=== PATIENT | female | born 1960 | race Caucasian/White ===

== ENCOUNTER 2016-05-05 15:07 | Emergency (ER) | payer OTHER ==
[2016-05-05] MEDS ORDERED: SUCRALFATE 1 GM/10 ML UDC PO STA (16:15)
[2016-05-05] MEDS ORDERED: MAG HYDROX/AL HYDROX/SIMETH 30 ML UDC PO STA (16:15)
[2016-05-05] MEDS ORDERED: LIDOCAINE VISCOUS 2% 15 ML UDC MM STA (16:15)
[2016-05-05] MEDS ORDERED: LIDOCAINE VISCOUS 2% 15 ML UDC MM ONE (16:37)
[2016-05-05] MEDS ORDERED: SUCRALFATE 1 GM/10 ML UDC ONE (16:37)
[2016-05-05] MEDS ORDERED: MAG HYDROX/AL HYDROX/SIMETH 30 ML UDC ONE (16:37)
== END 2016-05-05 17:05 | disposition home or self-care (01) ==
DX: R07.9 Chest pain, unspecified (principal); I10 Essential (primary) hypertension; E78.00 Pure hypercholesterolemia, unspecified; E11.9 Type 2 diabetes mellitus without complications; Z79.82 Long term (current) use of aspirin; Z79.84 Long term (current) use of oral hypoglycemic drugs
CPT/HCPCS: 36415; 71010; 80053; 83690; 84484; 85025; 85379; 93005; 93010; 99284; A9270

== ENCOUNTER 2016-09-03 13:16 | Outpatient (CLI) | payer OTHER ==
[2016-09-03 19:01] LABS: ALBUMIN/GLOBULIN RATIO 1.4 (1.0-2.2); BILIRUBIN,TOTAL 0.8 mg/dL (0.2-1.0); CREATININE 0.6 mg/dL (0.4-1.0); POTASSIUM 3.3 mmol/L (3.5-5.0); TOTAL PROTEIN 6.6 g/dL (6.7-8.2)
[2016-09-03 19:06] LABS: HEMOGLOBIN A1C 1.02 g/dL
== END 2016-09-03 13:17 | disposition home or self-care (01) ==
LOC: LAB.WCP 13:16
PROVIDERS: ATTEND Physician Assistant Medical
DX: E11.65 Type 2 diabetes mellitus with hyperglycemia (principal)
CPT/HCPCS: 36415; 80053; 83036

== ENCOUNTER 2016-11-01 11:48 | Outpatient (CLI) | payer OTHER ==
--- NOTE | 2016-11-02 18:05 | Mammography Report ---
DIGITAL BILATERAL SCREENING MAMMOGRAM: 11/01/2016 HISTORY: A 56-year-old asymptomatic female. TECHNIQUE: Routine CC and MLO projections as well as bilateral exaggerated CC views were obtained of the breasts. COMPARISON: 05/2011, 04/2008 FINDINGS: Scattered fibroglandular tissue is present within the breasts. There are no dominant masses, suspicious microcalcifications, or secondary signs of malignancy. In comparison to the previous studies, there are no significant changes. The pattern of glandular asymmetry is stable. Few benign calcifications again noted. Symmetric reactionary axillary lymph nodes are incidental. ASSESSMENT: NO MAMMOGRAPHIC EVIDENCE OF MALIGNANCY. NO SIGNIFICANT INTERVAL CHANGES. RECOMMENDATION: Screening mammography is recommended annually. BIRADS category 2 - benign. STANDARD QUALIFYING STATEMENTS 1. This examination was reviewed with the aid of Computed-Aided Detection (CAD) . 2. A negative or benign imaging report should not delay biopsy if clinically suspicious findings are present. Consider surgical consultation if warranted. More than 5% of cancers are not identified by imaging. 3. Dense breasts may obscure an underlying neoplasm. JOB #: [id number] EXT JOB #: [id number] LES
== END 2016-11-01 11:49 | disposition home or self-care (01) ==
LOC: DI.N 11:48
PROVIDERS: ATTEND Physician Assistant Medical
DX: Z12.31 Encounter for screening mammogram for malignant neoplasm of breast (principal)
CPT/HCPCS: 77067

== ENCOUNTER 2016-12-03 07:11 | Day surgery (SDC) | payer OTHER ==
[2016-12-03] MEDS ORDERED: LACTATED RINGERS 1,000 ML IV ONE (07:27)
[2016-12-03] MEDS ORDERED: MIDAZOLAM 2 MG/2 ML VIAL IVP ONE (09:10)
[2016-12-03] MEDS ORDERED: fentaNYL 100 MCG/2 ML VIAL IVP ONE (09:10)
[2016-12-03 09:14] VITALS: BP 102/44
== END 2016-12-03 07:12 | disposition home or self-care (01) ==
LOC: SDS 07:11
PROVIDERS: ATTEND Surgery
PROC: 0DBN8ZX Excision of Sigmoid Colon, Via Natural or Artificial Opening Endoscopic, Diagnostic (ICD-10-PCS; principal; 2016-12-03 08:15)
DX: Z12.11 Encounter for screening for malignant neoplasm of colon (principal); D12.5 Benign neoplasm of sigmoid colon; K57.30 Diverticulosis of large intestine without perforation or abscess without bleeding; E11.9 Type 2 diabetes mellitus without complications; I10 Essential (primary) hypertension; K21.9 Gastro-esophageal reflux disease without esophagitis; E78.5 Hyperlipidemia, unspecified; F32.9 Major depressive disorder, single episode, unspecified; Z79.82 Long term (current) use of aspirin; Z79.84 Long term (current) use of oral hypoglycemic drugs; Z87.891 Personal history of nicotine dependence
CPT/HCPCS: 45385; J7120; 88305

== ENCOUNTER 2017-02-04 11:33 | Outpatient (CLI) | payer OTHER ==
[2017-02-04 19:01] LABS: BASOPHILS % (AUTO) 0.5 %; EOSINOPHILS # (AUTO) 0.3 10^3/uL (0.0-0.7); EOSINOPHILS % (AUTO) 4.3 %; HCT - HEMATOCRIT 39.4 % (37.0-47.0); HGB - HEMOGLOBIN 12.9 g/dL (12.0-16.0); LYMPHOCYTES % (AUTO) 26.9 %; MEAN CORPUSCULAR HEMOGLOBIN 27.7 pg (27.0-31.0); MEAN CORPUSCULAR HGB CONC 32.6 g/dL (32.0-36.0); MEAN CORPUSCULAR VOLUME 84.9 fL (81.0-99.0); MEAN PLATELET VOLUME 8.6 fL (7.9-10.8); MONOCYTES # (AUTO) 0.5 10^3/uL (0.0-1.0); NEUTROPHILS # (AUTO) 4.7 10^3/uL (1.5-6.6); NEUTROPHILS % (AUTO) 62.3 %; RED BLOOD COUNT 4.65 10^6/uL (4.20-5.40); RED CELL DISTRIBUTION WIDTH 14.1 % (12.0-15.0); UNCORRECTED WHITE BLOOD COUNT 7.6 x10^3/uL; WHITE BLOOD COUNT 7.6 x10^3/uL (4.8-10.8)
[2017-02-04 19:14] LABS: ALBUMIN/GLOBULIN RATIO 1.5 (1.0-2.2); BILIRUBIN,TOTAL 0.7 mg/dL (0.2-1.0); BUN - BLOOD UREA NITROGEN 14 mg/dL (6-20); CALCIUM 8.9 mg/dL (8.5-10.3); CARBON DIOXIDE - CO2 23 mmol/L (21-32); CHLORIDE 102 mmol/L (101-111); CHOL/HDL RATIO 4.6 (<4.4); CHOLESTEROL 157 mg/dL; CREATININE 0.6 mg/dL (0.4-1.0); GFR - MDRD 104 (>89); GLUCOSE 163 mg/dL (70-100); HDL CHOLESTEROL 34 mg/dL; LDL/HDL RATIO 1.4 (<4.4); POTASSIUM 3.5 mmol/L (3.5-5.0); SODIUM 136 mmol/L (135-145); TOTAL PROTEIN 6.9 g/dL (6.7-8.2); TRIGLYCERIDES 384 mg/dL; VLDL CHOLESTEROL 77 mg/dL
[2017-02-04 19:35] LABS: HEMOGLOBIN A1C 1.05 g/dL
== END 2017-02-04 11:34 | disposition home or self-care (01) ==
LOC: LAB.WCP 11:33
PROVIDERS: ATTEND Physician Assistant Medical
DX: Z00.00 Encounter for general adult medical examination without abnormal findings (principal); E11.65 Type 2 diabetes mellitus with hyperglycemia
CPT/HCPCS: 36415; 80050; 80061; 82043; 83036

== ENCOUNTER → 2018-01-20 | Outpatient (CLI) | payer OTHER ==
[2018-01-20 13:07] LABS: BASOPHILS % (AUTO) 0.3 %; EOSINOPHILS # (AUTO) 0.3 10^3/uL (0.0-0.7); EOSINOPHILS % (AUTO) 3.6 %; HGB - HEMOGLOBIN 12.7 g/dL (12.0-16.0); LYMPHOCYTES # (AUTO) 1.7 10^3/uL (1.5-3.5); LYMPHOCYTES % (AUTO) 21.7 %; MEAN CORPUSCULAR HEMOGLOBIN 28.7 pg (27.0-31.0); MEAN CORPUSCULAR HGB CONC 33.8 g/dL (32.0-36.0); MEAN CORPUSCULAR VOLUME 84.9 fL (81.0-99.0); MONOCYTES # (AUTO) 0.4 10^3/uL (0.0-1.0); MONOCYTES % (AUTO) 4.8 %; NEUTROPHILS # (AUTO) 5.6 10^3/uL (1.5-6.6); NEUTROPHILS % (AUTO) 69.6 %; PLT - PLATELET COUNT 289 10^3/uL (130-450); RED BLOOD COUNT 4.41 10^6/uL (4.20-5.40); RED CELL DISTRIBUTION WIDTH 14.6 % (12.0-15.0)
[2018-01-20 13:26] LABS: ALBUMIN 4.1 g/dL (3.2-5.5); ALBUMIN/GLOBULIN RATIO 1.4 (1.0-2.2); ALKALINE PHOSPHATASE 51 IU/L (42-121); ALT ALANINE AMINOTRANSFERASE 55 IU/L (10-60); AST ASPARTATE AMINOTRANSFERASE 53 IU/L (10-42); BILIRUBIN,TOTAL 0.6 mg/dL (0.2-1.0); BUN - BLOOD UREA NITROGEN 14 mg/dL (6-20); CALCIUM 8.6 mg/dL (8.5-10.3); CARBON DIOXIDE - CO2 24 mmol/L (21-32); CHLORIDE 105 mmol/L (101-111); CHOL/HDL RATIO 2.9 (<4.4); CHOLESTEROL 135 mg/dL; CREATININE 0.5 mg/dL (0.4-1.0); GFR - MDRD 128 (>89); GLUCOSE 177 mg/dL (70-100); HDL CHOLESTEROL 47 mg/dL; LDL CHOLESTEROL,CALCULATED 46 mg/dL; SODIUM 138 mmol/L (135-145); VLDL CHOLESTEROL 42 mg/dL
[2018-01-20 13:31] LABS: HB2 TOTAL 13.5 g/dL; HEMOGLOBIN A1C 1.02 g/dL; HEMOGLOBIN A1C % 9.1 % (4.6-6.2)
== END ==
LOC: LAB.WCP 10:13
PROVIDERS: ATTEND Physician Assistant Medical
DX: D64.9 Anemia, unspecified (principal); I10 Essential (primary) hypertension; E78.5 Hyperlipidemia, unspecified; E11.65 Type 2 diabetes mellitus with hyperglycemia
CPT/HCPCS: 36415; 80050; 80061; 82043; 83036; 83721

== ENCOUNTER 2018-03-06 08:00 | Outpatient (CLI) | payer OTHER | END 2018-03-06 23:59 | disposition home or self-care (01) | LOC: LAB.WCP 08:00 | PROVIDERS: ATTEND Physician Assistant Medical | DX: Z79.891 Long term (current) use of opiate analgesic (principal) | CPT/HCPCS: 80307; 80361; 80365; 81599 ==

== ENCOUNTER 2018-09-04 10:14 | Outpatient (CLI) | payer OTHER | END 2018-09-04 10:15 | disposition home or self-care (01) | LOC: DI.WCP 10:14 | PROVIDERS: ATTEND Physician Assistant Medical | DX: Z53.9 Procedure and treatment not carried out, unspecified reason (principal) ==

== ENCOUNTER 2018-10-16 10:54 | Outpatient (CLI) | payer OTHER ==
--- NOTE | 2018-10-16 14:34 | XRAY Report ---
Reason: LUMBAR RADICULOPATHY Procedure Date: 10/16/2018 Accession Number: [id number] / [id number] Procedure: XR - Lumbar Spine 2 View CPT Code: FULL RESULT: EXAM: LUMBOSACRAL SPINE RADIOGRAPHY EXAM DATE: 10/16/2018 11:33 AM. CLINICAL HISTORY: LUMBAR RADICULOPATHY. COMPARISONS: None. TECHNIQUE: 2 views. FINDINGS: Alignment: Mild scoliosis. Grade 1 degenerative anterolisthesis of L4. Bones: 5 lumbar vertebrae. Small 12th ribs also noted. No fractures or bone lesions. Disks: Mild disk space narrowing at L4-L5. Other disk spaces well preserved. Facets: Mild degenerative changes at L4-L5 and L5-S1. Sacroiliac Joints: Unremarkable. Soft Tissues: Nonspecific bowel gas pattern. IMPRESSION: Mild scoliosis with lower lumbar degenerative changes including mild disk space narrowing at L4-L5. RADIA
== END 2018-10-16 10:55 | disposition home or self-care (01) ==
LOC: DI 10:54
PROVIDERS: ATTEND Physician Assistant Medical
DX: M54.16 Radiculopathy, lumbar region (principal); M48.061 Spinal stenosis, lumbar region without neurogenic claudication; M41.86 Other forms of scoliosis, lumbar region
CPT/HCPCS: 72100

== ENCOUNTER 2018-11-27 08:00 | Outpatient (CLI) | payer OTHER ==
[2018-11-27 12:35] LABS: ALBUMIN/GLOBULIN RATIO 1.4 (1.0-2.2); ALKALINE PHOSPHATASE 48 IU/L (42-121); ALT ALANINE AMINOTRANSFERASE 47 IU/L (10-60); AST ASPARTATE AMINOTRANSFERASE 42 IU/L (10-42); BILIRUBIN,TOTAL 0.6 mg/dL (0.2-1.0); BUN - BLOOD UREA NITROGEN 16 mg/dL (6-20); CALCIUM 9.3 mg/dL (8.5-10.3); CARBON DIOXIDE - CO2 25 mmol/L (21-32); CHLORIDE 105 mmol/L (101-111); CHOL/HDL RATIO 3.2 (<4.4); CHOLESTEROL 148 mg/dL; CREATININE 0.6 mg/dL (0.4-1.0); GFR - MDRD 103 (>89); GLUCOSE 170 mg/dL (70-100); HDL CHOLESTEROL 46 mg/dL; LDL CHOLESTEROL,CALCULATED 41 mg/dL; LDL/HDL RATIO 0.9 (<4.4); SODIUM 140 mmol/L (135-145); TOTAL PROTEIN 6.8 g/dL (6.7-8.2); VLDL CHOLESTEROL 61 mg/dL
[2018-11-27 13:00] LABS: HB2 TOTAL 12.7 g/dL; HEMOGLOBIN A1C 0.99 g/dL; HEMOGLOBIN A1C % 9.3 % (4.6-6.2)
== END 2018-11-27 23:59 | disposition home or self-care (01) ==
LOC: LAB.WCP 08:00
PROVIDERS: ATTEND Physician Assistant Medical
DX: E11.65 Type 2 diabetes mellitus with hyperglycemia (principal)
CPT/HCPCS: 36415; 80053; 80061; 83036; 83721

== ENCOUNTER 2019-03-12 11:08 | Emergency (ER) | payer OTHER ==
[2019-03-12 12:39] LABS: BASOPHILS % (AUTO) 0.3 %; EOSINOPHILS # (AUTO) 0.3 10^3/uL (0.0-0.7); EOSINOPHILS % (AUTO) 2.7 %; HGB - HEMOGLOBIN 11.6 g/dL (12.0-16.0); LYMPHOCYTES # (AUTO) 1.9 10^3/uL (1.5-3.5); LYMPHOCYTES % (AUTO) 18.3 %; MEAN CORPUSCULAR HEMOGLOBIN 27.5 pg (27.0-31.0); MEAN PLATELET VOLUME 10.1 fL (7.9-10.8); MONOCYTES # (AUTO) 0.6 10^3/uL (0.0-1.0); MONOCYTES % (AUTO) 5.6 %; NEUTROPHILS # (AUTO) 7.6 10^3/uL (1.5-6.6); NEUTROPHILS % (AUTO) 72.7 %; PLT - PLATELET COUNT 269 10^3/uL (130-450); RED BLOOD COUNT 4.22 10^6/uL (4.20-5.40); RED CELL DISTRIBUTION WIDTH 13.9 % (12.0-15.0); WHITE BLOOD COUNT 10.4 x10^3/uL (4.8-10.8)
[2019-03-12 12:51] LABS: ALBUMIN 3.9 g/dL (3.2-5.5); ALBUMIN/GLOBULIN RATIO 1.3 (1.0-2.2); BILIRUBIN,TOTAL 0.4 mg/dL (0.2-1.0); CALCIUM 9.3 mg/dL (8.5-10.3); CREATININE 0.8 mg/dL (0.4-1.0)
[2019-03-12] MEDS ORDERED: KETOROLAC 60 MG/2 ML VIAL IM STA (15:20)
--- NOTE | 2019-03-12 15:26 | ED Physician Documentation ---
PD HPI BACK PAIN - Stated complaint Stated Complaint: R SIDE BACK PX/BILAT FOOT/LEG SWELLING - Chief complaint Chief Complaint: Back Pain - History obtained from History obtained from: Patient - History of Present Illness Timing - onset: How many weeks ago (1) Timing - duration: Weeks (1) Timing - details: Abrupt onset Pain level max: 5 Pain level now: 5 Location: Lower, Right, Left Quality: Pain, Spasm, Similar to prior episodes Associated symptoms: No: Fever, Weakness, Numbness, Incontinent of urine, Unable to urinate, Hematuria, Incontinent of stool Improves with: Rest Worsened by: Movement, Lifting Contributing factors: No: Lifting, Twisting, Trauma, Anticoagulated, Cancer, IVDA, Out of meds - Additional information Additional information: 58-year-old female is approximately 1 week status post a fall. She states that her back pain is improving, but she is concerned that she is having swelling in her legs. The swelling resolves when she elevates her legs. Worse with standing and walking. She states her left leg is more swollen than the right. Her doctor was concerned about potential DVT and sent her in. No chest pain. No shortness of breath. Review of Systems Constitutional: denies: Fever, Chills GI: denies: Vomiting, Diarrhea Skin: denies: Rash Musculoskeletal: denies: Neck pain, Back pain Neurologic: denies: Headache PD PAST MEDICAL HISTORY - Past Medical History Past Medical History: Yes Cardiovascular: Hypertension, High cholesterol Endocrine/Autoimmune: Type 2 diabetes GI:  HEENT: None Psych: Depression, Anxiety Musculoskeletal: Osteoarthritis, Gout - Past Surgical History Past Surgical History: Yes General: Cholecystectomy, Appendectomy HEENT: Tonsil/Adenoidectomy - Present Medications Home Medications: Ambulatory Orders Medication Instructions Recorded Confirmed Ascorbate Calcium [Vitamin C] 500 mg PO DAILY 07/26/14 01/22/19 EPINEPHrine [Epipen] 0.3 mg IM ONCE PRN 07/26/14 01/22/19 Hydrochlorothiazide 25 mg PO DAILY 07/26/14 01/22/19 Metformin HCl 1,000 mg PO BIDWM 07/26/14 01/22/19 Omeprazole Magnesium [Prilosec Otc] 20 mg PO DAILY 07/26/14 01/22/19 Simvastatin 40 mg PO QPM 07/26/14 01/22/19 Telmisartan [Micardis] 20 mg PO DAILY 07/26/14 01/22/19 Allopurinol 300 mg PO DAILY 12/03/16 01/22/19 Aspirin 81 mg PO DAILY 12/03/16 01/22/19 Celecoxib [Celebrex] 200 mg PO DAILY 12/03/16 01/22/19 Empagliflozin [Jardiance] 25 mg PO DAILY 12/03/16 01/22/19 Liraglutide [Victoza 2-Vel] 1.8 mg SQ DAILY 01/22/19 01/22/19 Ketorolac [Toradol] 10 mg PO Q6H PRN #20 tablet 03/12/19 - Allergies Allergies/Adverse Reactions: Allergies Allergy/AdvReac Type Severity Reaction Status Date / Time venom-honey bee Allergy Severe Respiratory Verified 03/12/19 11:27 [bee venom (honey bee)] ammonia Allergy Severe Respiratory Uncoded 12/02/16 12:27 lentil, dried peas, chick Allergy Itching Uncoded 12/02/16 12:27 peas - Social History Does the pt smoke?: No Smoking Status: Never smoker Does the pt drink ETOH?: No Does the pt have substance abuse?: No - Immunizations Immunizations are current?: No Immunizations: TDAP >10years/unknown PD ED PE NORMAL - Vitals Vital signs reviewed: Yes - General General: Alert and oriented X 3, No acute distress, Well developed/nourished - HEENT HEENT: Moist mucous membranes - Neck Neck: Supple, no meningeal sign - Cardiac Cardiac: RRR, Strong equal pulses - Respiratory Respiratory: No respiratory distress, Clear bilaterally - Abdomen Abdomen: Soft, Non tender, Non distended - Back Back: No spinal TTP, Other (No midline tenderness to palpation. No step-off or deformity.) - Derm Derm: Warm and dry - Extremities Extremities: Normal ROM s pain, No calf tenderness / cord, Other (1+ pitting edema bilateral lower extremities.) - Neuro Neuro: Alert and oriented X 3, No motor deficit, No sensory deficit, Other (Normal bilateral lower extremity patellar and ankle jerk reflexes. Normal great toe extension bilaterally. no saddle anesthesia) - Psych Psych: Normal mood, Normal affect Results - Vitals Vitals: Vital Signs - 24 hr 03/12/19 03/12/19 11:27 13:31 Temperature 37 C 36.9 C Heart Rate 81 84 Respiratory 18 18 Rate Blood Pressure 142/72 H 106/69 O2 Saturation 100 99 Oxygen O2 Source Room air - Labs Labs: Laboratory Tests 03/12/19 03/12/19 03/12/19 12:32 12:32 12:32 WBC 10.4 RBC 4.22 Hgb 11.6 L Hct 36.3 L MCV 86.0 MCH 27.5 MCHC 32.0 RDW 13.9 Plt Count 269 MPV 10.1 Neut # (Auto) 7.6 H Lymph # (Auto) 1.9 [place] # (Auto) 0.6 Eos # (Auto) 0.3 Baso # (Auto) 0.0 Absolute Nucleated RBC 0.00 Nucleated RBC % 0.0 Sodium 137 Potassium 4.0 Chloride 100 L Carbon Dioxide 24 Anion Gap 13.0 BUN 22 H Creatinine 0.8 Estimated GFR (MDRD) 74 L Glucose 227 H Calcium 9.3 Total Bilirubin 0.4 AST 30 ALT 33 Alkaline Phosphatase 57 B-Natriuretic Peptide 20 Total Protein 7.0 Albumin 3.9 Globulin 3.1 Albumin/Globulin Ratio 1.3 Lipase 48 - Rads (name of study) duplex US LLE Radiology: Prelim report reviewed, EMP read contemporaneously, See rad report (No DVT) PD MEDICAL DECISION MAKING - ED course Complexity details: reviewed results, re-evaluated patient, considered differential (No cauda equina, no spinal epidural abscess, no fracture, no aortic dissection or evidence of aneursym rupture), d/w patient ED course: Patient with what appears to be a low back contusion. Has peripheral edema bilaterally. No DVT on ultrasound. Pain improved with Toradol. Ambulating well. No evidence of cauda equina, epidural abscess, fracture. Patient counseled regarding signs and symptoms for which I believe and urgent re- evaluation would be necessary. Patient with good understanding of and agreement to plan and is comfortable going home at this time This document was made in part using voice recognition software. While efforts are made to proofread this document, sound alike and grammatical errors may occur. Departure - Departure Disposition: 01 Home, Self Care Clinical Impression: Peripheral edema Back pain Qualifiers: Back pain location: low back pain Chronicity: acute Back pain laterality: left Sciatica presence: without sciatica Qualified Code(s): M54.5 - Low back pain Condition: Good Instructions: ED Low Back Pain Injury, ED Edema Legs Bilateral Follow-Up: Rani Sharma PA-C [Primary Care Provider] - Within 1 week Prescriptions: Ketorolac [Toradol] 10 mg PO Q6H PRN #20 tablet PRN Reason: back pain Comments: Return if you worsen. Do not take Aleve, Motrin, Advil with the ketorolac. Drink plenty of water. Your ultrasound does not show any blood clot today.
--- NOTE | 2019-03-12 16:41 | Ultrasound Report ---
Reason: LLE swelling Procedure Date: 03/12/2019 Accession Number: [id number] / [id number] Procedure: US - Duplex Ext Veins Left CPT Code: Final Report FULL RESULT: EXAM: LEFT LOWER EXTREMITY VENOUS ULTRASOUND EXAM DATE: 03/12/2019 04:16 PM. CLINICAL HISTORY: LLE swelling. Fall a few days ago. COMPARISON: DUPLEX EXT VEINS LEFT 08/12/2015 5:05 PM. TECHNIQUE: Real-time sonographic vascular imaging was performed by the missile pad mechanic through the lower extremity utilizing both color-flow and Doppler spectral analysis. Multiple ambulatory services representative static images were saved for review. FINDINGS: Subcutaneous edema with limited visualization of lower thigh and calf veins. Common Femoral Vein (CFV): Normal. CFV-GSV Junction: Normal. Profunda Femoral Vein (PFV): Normal. Femoral Vein (FV) Prox: Normal. Femoral Vein (FV) Mid: Normal. Femoral Vein (FV) Dist: Patent, limited visualization. Popliteal Vein: Normal. Posterior Tibial Veins: Patent, limited visualization. Peroneal Veins: Patent, limited visualization. Contralateral Side CFV: Normal. Other: 3.4 x 0.5 x 1.5 cm medial left popliteal fossa cyst. IMPRESSION: 1. No evidence for deep venous thrombosis. 2. Small left Kaur's cyst. RADIA
[2019-03-12 17:07] VITALS: BP 130/70
== END 2019-03-12 17:07 | disposition home or self-care (01) ==
LOC: ED 11:08
DX: R60.0 Localized edema (principal); M54.5 Low back pain; M71.22 Synovial cyst of popliteal space [Baker], left knee; I10 Essential (primary) hypertension; E11.9 Type 2 diabetes mellitus without complications; Z79.84 Long term (current) use of oral hypoglycemic drugs; Z79.82 Long term (current) use of aspirin
CPT/HCPCS: 36415; 80053; 83690; 83880; 85025; 96372; 99284

== ENCOUNTER 2019-09-03 12:38 | Outpatient (CLI) | payer OTHER ==
[2019-09-03 18:31] LABS: CALCIUM 8.9 mg/dL (8.5-10.3); CREATININE 0.6 mg/dL (0.4-1.0)
[2019-09-03 19:02] LABS: HB2 TOTAL 12.7 g/dL; HEMOGLOBIN A1C 1.06 g/dL; HEMOGLOBIN A1C % 9.8 % (4.6-6.2)
== END 2019-09-03 23:59 | disposition home or self-care (01) ==
LOC: LAB.WCP 12:38
PROVIDERS: ATTEND Physician Assistant Medical
DX: E11.9 Type 2 diabetes mellitus without complications (principal)
CPT/HCPCS: 36415; 80048; 83036

== ENCOUNTER 2020-09-29 08:00 | Outpatient (CLI) | payer OTHER ==
[2020-09-29 13:30] LABS: ALBUMIN/GLOBULIN RATIO 1.3 (1.0-2.2); ALKALINE PHOSPHATASE 54 IU/L (42-121); ALT ALANINE AMINOTRANSFERASE 34 IU/L (10-60); AST ASPARTATE AMINOTRANSFERASE 30 IU/L (10-42); BILIRUBIN,TOTAL 0.9 mg/dL (0.2-1.0); BUN - BLOOD UREA NITROGEN 19 mg/dL (6-20); CARBON DIOXIDE - CO2 26 mmol/L (21-32); CHLORIDE 103 mmol/L (101-111); CHOLESTEROL 168 mg/dL; CREATININE 0.6 mg/dL (0.4-1.0); CRP - C-REACTIVE PROTEIN 1.6 mg/dL (0-1.0); GFR - MDRD 102 (>89); GLUCOSE 217 mg/dL (70-100); HDL CHOLESTEROL 42 mg/dL; POTASSIUM 3.3 mmol/L (3.5-5.0); SODIUM 140 mmol/L (135-145); TOTAL PROTEIN 7.1 g/dL (6.7-8.2); TRIGLYCERIDES 402 mg/dL; URIC ACID 4.9 mg/dL (2.6-7.2)
[2020-09-29 13:31] LABS: ESTIMATED AVERAGE GLUCOSE 237 mg/dL (70-100); HEMOGLOBIN A1c% 9.9 % (4.27-6.07)
[2020-09-29 14:04] LABS: LDL CHOLESTEROL,DIRECT 68 mg/dL; LDLD/HDL RATIO 1.6 (<4.4)
[2020-09-29 16:13] LABS: RHEUMATOID FACTOR NEGATIVE (Negative)
[2020-10-01 14:41] LABS: DNA (DS) ANTIBODY 1 IU/mL
[2020-10-01 15:41] LABS: ANA SCREEN NEGATIVE (NEGATIVE)
[2020-10-02 18:41] LABS: CYCLIC CITRULL PEPTIDE CCP IGG <16 UNITS
== END 2020-09-29 08:01 | disposition home or self-care (01) ==
LOC: LAB.WCP 08:00
PROVIDERS: ATTEND Physician Assistant Medical
DX: E11.8 Type 2 diabetes mellitus with unspecified complications (principal); M19.90 Unspecified osteoarthritis, unspecified site
CPT/HCPCS: 36415; 80053; 80061; 83036; 83721; 84550; 85651; 86038; 86140; 86200; 86225; 86430

== ENCOUNTER 2022-04-06 08:00 | Outpatient (CLI) | payer OTHER | END 2022-04-06 23:59 | disposition home or self-care (01) | LOC: LAB.N 08:00 | PROVIDERS: ATTEND Physician Assistant Medical | DX: N39.0 Urinary tract infection, site not specified (principal) | CPT/HCPCS: 87086; 87181 ==

== ENCOUNTER 2023-06-11 10:51 | Emergency (ER) | payer OTHER ==
[2023-06-11 11:42] LABS: BASOPHILS % (AUTO) 0.1 %; EOSINOPHILS % (AUTO) 0.1 %; HCT - HEMATOCRIT 31.1 % (37.0-47.0); HGB - HEMOGLOBIN 10.5 g/dL (12.0-16.0); LYMPHOCYTES # (AUTO) 0.9 10^3/uL (1.5-3.5); LYMPHOCYTES % (AUTO) 8.7 %; MEAN CORPUSCULAR HEMOGLOBIN 26.9 pg (27.0-31.0); MEAN CORPUSCULAR HGB CONC 33.8 g/dL (32.0-36.0); MEAN CORPUSCULAR VOLUME 79.7 fL (81.0-99.0); MONOCYTES % (AUTO) 9.9 %; NEUTROPHILS # (AUTO) 8.2 10^3/uL (1.5-6.6); NEUTROPHILS % (AUTO) 80.7 %; PLT - PLATELET COUNT 268 10^3/uL (130-450); RED CELL DISTRIBUTION WIDTH 14.6 % (12.0-15.0); WHITE BLOOD COUNT 10.2 x10^3/uL (4.8-10.8)
--- NOTE | 2023-06-11 11:45 | ED Physician Documentation ---
PD HPI URI - Stated complaint Stated Complaint: COUGH/SOA - Chief complaint Chief Complaint: Resp - History obtained from History obtained from: Patient, Family - History of Present Illness Timing - onset: How many days ago (3) Timing duration: Days (3) Timing details: Gradual onset Associated symptoms: Fever, Chills, Nasal congestion, Rhinorrhea, Dry cough, Dyspnea (States started having increased work of breathing today and feels like her chest is "tight".) Contributing factors: No: Travel, COPD / asthma Improves by: Rest Worsened by: Activity, Breathing - Additional information Additional information: Patient states history of diabetes. Had 1 episode of vomiting yesterday. None today. Diarrhea x 2. No abdominal pain. No hematemesis or hematochezia. No melena. Patient complains of cough for the past 3 days. Fever today. Increased shortness of breath and work of breathing today. Has never used inhalers. Does not smoke or vape. Review of Systems Constitutional: denies: Fever, Chills Nose: reports: Rhinorrhea / runny nose, Congestion Throat: denies: Sore throat Cardiac: denies: Palpitations GI: denies: Vomiting, Diarrhea Musculoskeletal: denies: Neck pain, Back pain Neurologic: denies: Headache PD PAST MEDICAL HISTORY - Past Medical History Past Medical History: Yes Cardiovascular: Hypertension, High cholesterol Respiratory: None Endocrine/Autoimmune: Type 2 diabetes GI: None HOUSING RELOCATION: None : None HEENT: None Psych: Depression, Anxiety Musculoskeletal: Osteoarthritis, Gout - Past Surgical History Past Surgical History: Yes General: Cholecystectomy, Appendectomy HEENT: Tonsil/Adenoidectomy - Present Medications Home Medications: Ambulatory Orders Medication Instructions Recorded Confirmed Ascorbate Calcium [Vitamin C] 500 mg PO DAILY 07/26/14 06/11/23 EPINEPHrine [Epipen] 0.3 mg IM ONCE PRN 07/26/14 06/11/23 Metformin HCl 1,000 mg PO BIDWM 07/26/14 06/11/23 Omeprazole Magnesium [Prilosec Otc] 20 mg PO DAILY 07/26/14 06/11/23 Simvastatin 40 mg PO QPM 07/26/14 06/11/23 Telmisartan [Micardis] 20 mg PO DAILY 07/26/14 06/11/23 hydroCHLOROthiazide 25 mg PO DAILY 07/26/14 06/11/23 [Hydrochlorothiazide] Aspirin 81 mg PO DAILY 12/03/16 06/11/23 Empagliflozin [Jardiance] 25 mg PO DAILY 12/03/16 06/11/23 Albuterol Sulf [Ventolin Hfa 1 - 2 puffs INH Q4HR PRN #1 each 06/11/23 Inhaler] Dulaglutide [Trulicity] 0.75 mg SQ OAW #1 each 06/11/23 HYDROcodone/ACET 10/325 [[place] 10 1 tablet PO Q8HR PRN 06/11/23 06/11/23 mg/325 mg] cephALEXin [Keflex] 500 mg PO Q6H #20 cap 06/11/23 - Allergies Allergies/Adverse Reactions: Allergies Allergy/AdvReac Type Severity Reaction Status Date / Time venom-honey bee Allergy Severe Respiratory Verified 06/11/23 10:55 [bee venom (honey bee)] ammonia Allergy Severe Respiratory Uncoded 12/02/16 12:27 lentil, dried peas, chick Allergy Itching Uncoded 12/02/16 12:27 peas - Social History Does the pt smoke?: No Smoking Status: Former smoker Does the pt drink ETOH?: Yes Does the pt have substance abuse?: No - Immunizations Immunizations are current?: Yes Immunizations: TDAP >10years/unknown - POLST Patient has POLST: No PD ED PE NORMAL - Vitals Vital signs reviewed: Yes - General General: Alert and oriented X 3, No acute distress - HEENT HEENT: Ears normal, Moist mucous membranes, Pharynx benign - Neck Neck: Supple, no meningeal sign - Cardiac Cardiac: RRR - Respiratory Respiratory: Other (Diminished breath sounds bilaterally with wheezing at the bases) - Abdomen Abdomen: Soft, Non tender, Non distended - Back Back: No spinal TTP - Derm Derm: Warm and dry, No rash - Extremities Extremities: No edema - Neuro Neuro: Alert and oriented X 3 - Psych Psych: Normal mood, Normal affect Results - Vitals Vitals: Vital Signs - 24 hr 06/11/23 06/11/23 06/11/23 10:55 11:59 13:18 Temperature 38.7 C H 37.7 C Heart Rate 97 85 89 Respiratory 24 18 20 Rate Blood Pressure 144/59 H 151/65 H O2 Saturation 97 98 06/11/23 13:35 Temperature Heart Rate 79 Respiratory 16 Rate Blood Pressure O2 Saturation Oxygen O2 Source Room air - EKG (time done) 1113 EKG releavant findings:: EKG personally interpreted by author of this note. Relevant findings are: Rate: Rate (enter#) (89) Rhythm: NSR [place]: Normal Intervals: Normal PA QRS: Normal Ischemia: Other (Minimal ST depression in the lateral leads) - Labs Labs: Laboratory Tests 06/11/23 06/11/23 06/11/23 11:28 11:30 11:30 WBC 10.2 RBC 3.90 L Hgb 10.5 L Hct 31.1 L MCV 79.7 L MCH 26.9 L MCHC 33.8 RDW 14.6 Plt Count 268 MPV 10.0 Neut # (Auto) 8.2 H Lymph # (Auto) 0.9 L [place] # (Auto) 1.0 Eos # (Auto) 0.0 Baso # (Auto) 0.0 Absolute Nucleated RBC 0.00 Nucleated RBC % 0.0 VBG pH VBG pCO2 VBG pO2 VBG HCO3 VBG Total CO2 VBG O2 Saturation VBG Base Excess Sodium 134 L Potassium 2.7 L Chloride 101 Carbon Dioxide 16 L Anion Gap 17.0 H BUN 37 H Creatinine 1.3 Estimated GFR (MDRD) 42 L Glucose 344 H Calcium 9.0 Total Bilirubin 0.7 AST 17 ALT 24 Alkaline Phosphatase 51 Troponin I High Sens 11.7 Total Protein 7.7 Albumin 4.0 Globulin 3.7 Albumin/Globulin Ratio 1.1 Lipase 59 Urine Color Urine Clarity Urine pH Ur Specific [place] Urine Protein Urine Glucose (UA) Urine Ketones Urine Occult Blood Urine Nitrite Urine Bilirubin Urine Urobilinogen Ur Leukocyte Esterase Urine RBC Urine WBC Urine WBC Clumps Ur Squamous Epith Cells Urine Bacteria Ur Microscopic Review Urine Culture Comments Nasal Adenovirus (PCR) NOT DETECTED Nasal B. parapertussis DNA (PCR) NOT DETECTED Nasal Coronavir 229E PCR NOT DETECTED Nasal Coronavir HKU1 PCR NOT DETECTED Nasal Coronavir NL63 PCR NOT DETECTED Nasal Coronavir OC43 PCR NOT DETECTED Nasal Enterovir/Rhinovir PCR NOT DETECTED Nasal Influenza B PCR DETECTED A Nasal Influenza A PCR NOT DETECTED Nasal Parainfluen 1 PCR NOT DETECTED Nasal Parainfluen 2 PCR NOT DETECTED Nasal Parainfluen 3 PCR NOT DETECTED Nasal Parainfluen 4 PCR NOT DETECTED Nasal RSV (PCR) NOT DETECTED Nasal B.pertussis DNA PCR NOT DETECTED Nasal C.pneumoniae (PCR) NOT DETECTED [place] Human Metapneumo PCR NOT DETECTED Nasal M.pneumoniae (PCR) NOT DETECTED Nasal SARS-CoV-2 (PCR) NOT DETECTED Serum Ketones 06/11/23 06/11/23 06/11/23 11:30 11:51 12:25 WBC RBC Hgb Hct MCV MCH MCHC RDW Plt Count MPV Neut # (Auto) Lymph # (Auto) [place] # (Auto) Eos # (Auto) Baso # (Auto) Absolute Nucleated RBC Nucleated RBC % VBG pH 7.401 VBG pCO2 29.0 L VBG pO2 23.4 L VBG HCO3 17.6 L VBG Total CO2 18.5 L VBG O2 Saturation 44.2 L VBG Base Excess -6.0 L Sodium Potassium Chloride Carbon Dioxide Anion Gap BUN Creatinine Estimated GFR (MDRD) Glucose Calcium Total Bilirubin AST ALT Alkaline Phosphatase Troponin I High Sens Total Protein Albumin Globulin Albumin/Globulin Ratio Lipase Urine Color LT. YELLOW Urine Clarity HAZY Urine pH 6.0 Ur Specific [place] 1.010 Urine Protein TRACE Urine Glucose (UA) >=1000 H Urine Ketones NEGATIVE Urine Occult Blood TRACE-INTA Urine Nitrite NEGATIVE Urine Bilirubin NEGATIVE Urine Urobilinogen 0.2 (NORMAL) Ur Leukocyte Esterase TRACE H Urine RBC 0-5 Urine WBC >25 H Urine WBC Clumps PRESENT Ur Squamous Epith Cells FEW Squamous Urine Bacteria Few Ur Microscopic Review INDICATED Urine Culture Comments INDICATED Nasal Adenovirus (PCR) Nasal B. parapertussis DNA (PCR) Nasal Coronavir 229E PCR Nasal Coronavir HKU1 PCR Nasal Coronavir NL63 PCR Nasal Coronavir OC43 PCR Nasal Enterovir/Rhinovir PCR Nasal Influenza B PCR Nasal Influenza A PCR Nasal Parainfluen 1 PCR Nasal Parainfluen 2 PCR Nasal Parainfluen 3 PCR Nasal Parainfluen 4 PCR Nasal RSV (PCR) Nasal B.pertussis DNA PCR Nasal C.pneumoniae (PCR) [place] Human Metapneumo PCR Nasal M.pneumoniae (PCR) Nasal SARS-CoV-2 (PCR) Serum Ketones NEGATIVE - Rads (name of study) cxr Relevant Findings:: Final report received, See rad report PD Medical Decision Making - ED course Complexity details: reviewed results, re-evaluated patient, considered diffe rential, d/w patient ED course: Patient is well-appearing, nontoxic. No hypoxia or respiratory distress. Chest x-ray does not show any acute abnormalities. Positive for influenza B. Feels better after IV fluids, insulin, albuterol and DuoNeb treatment. Also found to have a UTI and given Rocephin. No flank pain. No CVA tenderness to suggest pyelonephritis. Does not appear septic. We will place on antibiotics for UTI for home. Patient is out of the window for Tamiflu. She states she is out of her Trulicity, we will attempt to prescribe this for her, informed the patient that the insurance may not cover it and she may need to contact her doctor on Tuesday to obtain a prescription for this. Patient's breathing difficulties resolved. Ambulating up and down the hallway of the emergency department and across the [place] to the bathroom without significant dyspnea. No evidence of pneumothorax, pneumonia. No evidence of PE. Patient counseled regarding signs and symptoms for which I believe and urgent re-evaluation would be necessary. Patient with good understanding of and agreement to plan and is comfortable going home at this time This document was made in part using voice recognition software. While efforts are made to proofread this document, sound alike and grammatical errors may occur. Departure - Departure Disposition: Home, Self Care Clinical Impression: Influenza B, Hyperglycemia UTI (urinary tract infection) Qualifiers: Urinary tract infection type: acute cystitis Hematuria presence: without hematuria Qualified Code(s): N30.00 - Acute cystitis without hematuria Condition: Good Instructions: ED Flu, ED UTI Cystitis Female Follow-Up: Rani Sharma PA-C [Primary Care Provider] - Within 1 week Prescriptions: Albuterol Sulf [Ventolin Hfa Inhaler] 1 - 2 puffs INH Q4HR PRN #1 each PRN Reason: Shortness Of Air/Wheezing cephALEXin [Keflex] 500 mg PO Q6H #20 cap Dulaglutide [Trulicity] 0.75 mg SQ OAW #1 each Comments: You have tested positive for influenza B today. Please take Motrin and Tylenol as needed for body aches at home. Make sure you are drinking plenty of fluids. You also have a bladder infection we have started you on an antibiotic. You were given a dose of Rocephin in the emergency department and will be started on cephalexin for home. [facility] Please return if you worsen. Use the albuterol every 4-6 hours at home as needed for difficulty breathing. Forms: PCP List
[2023-06-11] MEDS: ALBUTEROL NEB 2.5 MG/3 ML INH STA (11:52)
[2023-06-11] MEDS: SODIUM CHLORIDE 0.9% 1,000 ML IV STA ×2 (11:54)
[2023-06-11 11:56] LABS: ALBUMIN/GLOBULIN RATIO 1.1 (1.0-2.2); BILIRUBIN,TOTAL 0.7 mg/dL (0.2-1.0); CREATININE 1.3 mg/dL (0.6-1.3); POTASSIUM 2.7 mmol/L (3.5-4.5); TOTAL PROTEIN 7.7 g/dL (6.4-8.9)
[2023-06-11 11:56] LABS: VBG HCO3 17.6 mmol/L (23-28); VBG PH 7.401 (7.31-7.41); VBG PO2 23.4 mmHg (25-47); VBG TOTAL CO2 18.5 mmol/L (24-29)
[2023-06-11 11:57] LABS: VBG OXYGEN SATURATION 44.2 % (60-80)
[2023-06-11 12:01] LABS: TROPONIN I HIGH SENSITIVITY 11.7 ng/L (2.3-14.8)
[2023-06-11 12:49] LABS: CORONAVIRUS 229E-RESP PCR NOT DETECTED; CORONAVIRUS HKU1-RESP PCR NOT DETECTED; CORONAVIRUS NL63-RESP PCR NOT DETECTED; CORONAVIRUS OC43-RESP PCR NOT DETECTED; HUMAN METAPNEUMOVIRUS NOT DETECTED; INFLUENZA A- RESP PCR PANEL NOT DETECTED; RHINOVIRUS/ENTEROVIRUS NOT DETECTED; SARS-CoV-2 -RESP PCR PANEL NOT DETECTED
[2023-06-11 12:50] LABS: B. PARAPERTUSSIS- RESP PCR PAN NOT DETECTED; B. PERTUSSIS- RESP PCR PANEL NOT DETECTED; C. PNEUMONIAE- RESP PCR PANEL NOT DETECTED; INFLUENZA B - RESP PCR PANEL DETECTED; M. PNEUMONIAE- RESP PCR PANEL NOT DETECTED; PARAINFLUENZA VIRUS 1 NOT DETECTED; PARAINFLUENZA VIRUS 2 NOT DETECTED; PARAINFLUENZA VIRUS 3 NOT DETECTED; PARAINFLUENZA VIRUS 4 NOT DETECTED; RSV- RESP PCR PANEL NOT DETECTED
[2023-06-11 12:56] LABS: BILIRUBIN,URINE NEGATIVE (NEGATIVE); GLUCOSE, URINE (UA) >=1000 mg/dL (NEGATIVE); KETONES,URINE (UA) NEGATIVE (NEGATIVE); LEUKOCYTE ESTERASE, URINE TRACE (NEGATIVE); NITRITE,URINE NEGATIVE (NEGATIVE); OCCULT BLOOD,URINE TRACE-INTA (NEGATIVE); PROTEIN,URINE TRACE mg/dL (NEGATIVE); UROBILINOGEN,URINE 0.2 (NORMAL) E.U./dL (NORMAL)
[2023-06-11 12:57] LABS: CLARITY,URINE HAZY (CLEAR)
[2023-06-11 13:04] LABS: BACTERIA,URINE Few /HPF (None Seen); RBC,URINE 0-5 /HPF (0-5); SQUAMOUS EPITHELIAL CELL,UR FEW Squamous (<= Few); WBC CLUMPS,URINE PRESENT; WBC,URINE >25 /HPF (0-5)
[2023-06-11] MEDS: IPRATROPIUM/ALBUTEROL 3 ML NEB INH STA (13:26)
[2023-06-11] MEDS: INSULIN REGULAR HUMAN 300 UNIT/3 ML VIAL SUBQ STA (13:27)
[2023-06-11] MEDS: POTASSIUM BICARB 25 MEQ TABLET PO STA (13:28)
[2023-06-11] MEDS: cefTRIAXone 1 GM VIAL IVP STA (13:51)
[2023-06-11 15:11] VITALS: BP 150/77; O2SAT 96
--- NOTE | 2023-06-11 16:16 | XRAY Report ---
PROCEDURE: Chest 1V INDICATIONS: Chest pain TECHNIQUE: One view of the chest was acquired. COMPARISON: None. FINDINGS: Surgical changes and devices: None. Lungs and pleura: No pleural effusions or pneumothorax. Lungs are clear. Mediastinum: Mediastinal contours appear normal. Heart size is normal. Bones and chest wall: No suspicious bony lesions. Overlying soft tissues appear unremarkable. IMPRESSION: No acute cardiopulmonary process. Reviewed by: Nikita Mayers MD on 06/11/2023 10:42 AM GUILLERMO Approved by: Nikita Mayers MD on 06/11/2023 10:42 AM GUILLERMO Station ID: [id number]
== END 2023-06-11 15:10 | disposition home or self-care (01) ==
LOC: ED 10:51
DX: J10.1 Influenza due to other identified influenza virus with other respiratory manifestations (principal); N30.00 Acute cystitis without hematuria; E11.65 Type 2 diabetes mellitus with hyperglycemia; I10 Essential (primary) hypertension; Z79.85 Long-term (current) use of injectable non-insulin antidiabetic drugs; Z87.891 Personal history of nicotine dependence
CPT/HCPCS: 36415; 71045; 80053; 81001; 82009; 82803; 83690; 84484; 85025; 87086; 87181; 87633; 93005; 94640; 96374; 99284; A9270; J1815; 81003

== ENCOUNTER 2023-07-18 17:15 | Outpatient (CLI) | payer OTHER | END 2023-07-18 17:30 | disposition home or self-care (01) | LOC: LAB.N 17:15 | PROVIDERS: ATTEND Physician Assistant Medical | DX: N39.0 Urinary tract infection, site not specified (principal) | CPT/HCPCS: 87086 ==